=== PATIENT | male | born 2000 | race Caucasian/White ===

== ENCOUNTER 2025-10-03 17:36 | Emergency (ER) | payer OTHER, SELFPAY ==
--- NOTE | 2025-10-03 17:36 | ED_ITS ---
HPI - URI/Sore Throat General Chief Complaint: Upper Respiratory Infection Stated Complaint: VOMITING/SORE THROAT/BURNS/HOT FLASHES Time Seen by Provider: 10/03/25 17:36 Source: patient Mode of arrival: ambulatory Limitations: no limitations History of Present Illness HPI Narrative: Bob is a 25 year old male patient presenting to the clinic today with c/o fever highest 101, sore throat, body aches, chills, nausea vomiting, headache, and hot flashes as started this morning.. He reports he took ibuprofen about 40 minutes prior to arrival. Denies any shortness of breath but states his chest hurts due to coughing. Related Data Allergies Allergy/AdvReac Type Severity Reaction Status Date / Time No Known Allergies Allergy Verified 10/03/25 17:37 Review of Systems Review of Systems: Pertinent positives per HPI. Patient denies any rash, visual changes, dizziness, shortness of breath, chest pain, palpitations, diarrhea, constipation, abdominal pain, or any urinary issues. [facility] Past Medical History Medical History Alcohol use Surgical History Surgical History S/P ACL repair 2017 Family History Family History Grandparent Cerebrovascular accident Social History Social History Social History: Lives at home with mother. 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 There is no relevant family history pertinent to the patient complaint. Exam Narrative: General: Well-developed, well nourished, in no apparent distress Head: Normocephalic, atraumatic Eyes: Pupils equally round and reactive to light bilaterally, EOM intact, sclera and conjunctive clear, no discharge, lids normal Ears: TMs intact and clear, ear canals clear, no drainage, grossly hearing normal. Nose: Nares patent, clear nasal discharge, my inflammation, no sinus tenderness. Mouth: Oral pharynx red without lesions or masses, good dentition, MMM. Neck: Supple, trachea midline, no enlargement of anterior or posterior cervical nodes, no thyroid masses or goiter palpable. Cardio: Regular rate and rhythm, s1 and s2 normal, no murmur appreciated. Resp: Clear to auscultation bilaterally, no rhonchi, rales, wheezing or rubs Course Course Level of Care: Express Care Visit Vital Signs Vital signs: Vital Signs Temperature 36.8 C 10/03/25 17:48 Pulse Rate 103 H 10/03/25 17:48 Respiratory Rate 16 10/03/25 17:48 Blood Pressure 127/81 10/03/25 17:48 Pulse Oximetry 96 10/03/25 17:48 Temperature 36.8 C 10/03/25 17:48 Pulse Rate 103 H 10/03/25 17:48 Respiratory Rate 16 10/03/25 17:48 Blood Pressure 127/81 10/03/25 17:48 Pulse Oximetry 96 10/03/25 17:48 [facility] MDM Narrative Medical decision making narrative: At the time of visit patient is resting comfortably on the exam table. Patient appears to be nontoxic. C/o fever highest 101, sore throat, body aches, chills, nausea vomiting, headache, and hot flashes as started this morning.. He reports he took ibuprofen about 40 minutes prior to arrival. Denies any shortness of breath but states his chest hurts due to coughing. On exam patient has bilateral TMs intact and clear, clear nasal drainage, mild anterior turbinate inflammation, oral pharynx red, no cervical lymphadenopathy, lung sounds are cl ear, heart rates regular rate and rhythm, COVID, influenza, and strep test was ordered. Labs: COVID, flu, and strep test were performed. All testing was negative we will send strep for culture. Plan: I suspect patient has URI/pharyngitis/viral syndrome. Work note was given. Supportive measures were discussed with the patient and they voiced understanding discharge instructions and agrees to treatment plan. Return precautions reviewed Differential Diagnosis Differential Diagnosis: Differential diagnostic considerations for upper respiratory infection include upper respiratory infection, croup, otitis media, sinusitis, viral infection, bronchitis, influenza, pharyngitis, strep, uvulitis. Lab Data Labs: Lab Results 10/03/25 Range/Units 17:58 POC Influenza A Ag Negative (Negative) POC Influenza B Ag Negative (Negative) POC SARS CoV-2 Ag Negative (Negative) POC Grp A Strep Screen Negative (Negative) Discharge Plan Discharge Clinical Impression: Viral infection Upper respiratory infection Qualifiers: URI type: unspecified URI Qualified Code(s): J06.9 - Acute upper respiratory infection, unspecified Pharyngitis Qualifiers: Pharyngitis/tonsillitis etiology: unspecified etiology Qualified Code(s): J02.9 - Acute pharyngitis, unspecified Patient Disposition: Home Condition: Stable Instructions: Antibiotic Form, Pharyngitis (ED), Viral Syndrome (ED), Cold Symptoms (ED) Additional Instructions: COVID, flu, and strep test were all negative in the clinic today. We will send strep for culture if this comes back positive we will contact him place you on antibiotics at that time. Increase fluids and stay well hydrated May take Tylenol or motrin as directed on bottle for pain/fever May use Flonase 1 spray in each nare daily May take OTC antihistamines such as Zyrtec or Claritin daily as directed on bottle May apply Vicks vapor rub to chest to open sinuses Sinus rinses for congestion Cepacol spray, cough drops, throat lozenges, warm tea with honey/lemon, gargle salt water to soothe throat BRAT diet for diarrhea Clear liquids x 24 hours then advance as tolerated for nausea/vomiting Go to the ED if you develop a worsening in your condition- high fever not controlled by Tylenol or Motrin, dehydration, weakness, lethargy, shortness of breath, or chest pain. Follow up with your PCP in 3-5 days if symptoms persist. Patient Language: Citizen Of [place] Prescriptions: No Action methylphenidate HCl [Concerta] 18 mg tablet extended release 24hr 18 mg PO QAM Qty: 30 0RF Follow-up/Referrals: Jag Orona MD [Primary Care Provider, Family Practice] Stand Alone Forms: Work/School Release IP Time of Disposition: 17:58 Quality NIHSS Nursing Documentation ED NIHSS nursing documentation: reviewed/agree
[2025-10-03 17:48] VITALS: BP 127/81; PULSE 103; RESP 16; TEMP 36.8; O2SAT 96
[2025-10-03 18:01] LABS: EDCOVIDSCREEN Negative (Negative); EDINFLUASCREEN Negative (Negative); EDINFLUBSCREEN Negative (Negative); EDSTREPNEGPOS1 Negative (Negative)
== END 2025-10-03 18:05 | disposition home or self-care (01) ==
PROVIDERS: Emergency Provider Nurse Practitioner Family; PCP Family Medicine Adolescent Medicine
DX: B34.9 Viral infection, unspecified (principal); J06.9 Acute upper respiratory infection, unspecified; J02.9 Acute pharyngitis, unspecified; Z20.822 Contact with and (suspected) exposure to COVID-19; F17.290 Nicotine dependence, other tobacco product, uncomplicated
CPT/HCPCS: 87081; 87426; 87804; 87880; 99213; G0463